=== PATIENT | female | born 1960 | race Caucasian/White ===

== ENCOUNTER → 2018-09-25 | Outpatient (CLI) | payer OTHER ==
--- NOTE | 2018-09-28 09:52 | PCVCIMAG ---
APPROVED REPORT Study performed: 09/25/2018 15:44:13 Exam: Stress Echocardiogram Indication: Hypertension,exertional shortness of breath Patient Location: Echo lab Stress Nurse: Camila Rojo RN Room #: 2 Status: routine Ht: 5 ft 6 in HR: 75 bpm BP: 146/88 mmHg Rhythm: NSR Medical History Medical History: HTN, Hyperlipidemia,Palpitations Medications: beta otilio held Previous Cardiac Procedures: none Pretest Chest Pain Characteristics: No chest pain Exercise History: Physically active Procedure The patient underwent an Exercise Stress Test using the Oliverio Protocol. Blood pressure, heart rate, and EKG were monitored. An Echocardiogram was performed by apprentice technician in four stages in quad fashion. At peak stress, four selected images were obtained and placed side by side with resting images for comparison. Stress Test Details Stress Test: Exercise stress testing was performed using a Oliverio protocol. HR Resting HR: 75 bpmMax Heart Rate (APMHR): 161 bpm Max HR Achieved: 151 bpmTarget HR (85% APMHR): 136 bpm % of APMHR: 93 Recovery HR: 80 bpm HR response to stress: Normal HR response to stress BP Resting BP: 146/88 mmHg Max BP: 164/76 mmHg Recovery BP: 114/70 mmHg BP response to stress: Normal blood pressure response to stress. ECG Resting ECG: Sinus Rhythm, NSSTT changes Stress ECG: Sinus Rhythm, NSSTT changes ST Change: Non-ischemic Maximum ST Deviation: 0 mm Arrhythmia: Rare PACS Recovery ECG: Sinus Rhythm Recovery ST Change: Non-ischemic Recovery ST Deviation: 0 mm Recovery Arrhythmia: None Clinical Reason for Termination: Maximal effort Stress Symptoms: fatigue Exercise duration: 12 min 38 sec Highest Stage Achieved: Stage 5: 5.0 mph at 18% grade. Exercise capacity: 15.9 METs Overall Exercise Capacity for Age: Good Scale: Active Angina Score: None No complications. Stress ECG Conclusion The patient exercised according to the OLIVERIO protocol for 12:38 mins; achieving a work level of 15.9 METS. The resting heart rate of 75 bpm vitaliy to a maximum heart rate of 151 bpm. This value represent 93% of the maximal, age-predicted heart rate. The resting blood pressure of 146/88 mmHg, vitaliy to a maximum blood pressure of 164/76mmHg. The exercise test was stopped due to fatigue. Pickard Treadmill Score is 12.0 which is Low risk. Pre-Stress Echo The resting Echocardiogram showed normal left ventricular contractility with an estimated Ejection Fraction of about 55-60%. Normal wall motion in all segments on baseline images. Post-Stress Echo The stress Echocardiogram showed normal left ventricular contractility with an estimated Ejection Fraction of about 65-70%. Normal augmentation of wall motion in all segments on post stress images. Clinical No clinical or ECG evidence for ischemia. Conclusion Clinical Response: Non-ischemic Exercise Capacity: Below Average Stress ECG Response: Non-ischemic Stress Echo Images: Non-ischemic No clinical, EKG or echocardiographic evidence for ischemia. No echocardiographic evidence for exercise induced ischemia. Normal stress echocardiogram with maximal exercise stress. Dilation of ascending aorta 4.5cm No prior study available for comparison. <Conclusion> No clinical, EKG or echocardiographic evidence for ischemia. No echocardiographic evidence for exercise induced ischemia. Normal stress echocardiogram with maximal exercise stress. Dilation of ascending aorta 4.5cm
== END | disposition home or self-care (01) ==
LOC: PCVCIMAG 09-23 16:00
PROVIDERS: ATTEND Internal Medicine
DX: I10 Essential (primary) hypertension (principal); R06.02 Shortness of breath; E78.5 Hyperlipidemia, unspecified
CPT/HCPCS: 93325; 93351